=== PATIENT | female | born 1970 | race Caucasian/White ===

== ENCOUNTER 2022-07-24 08:54 | Emergency (ER) | payer BC ==
[~2022-07-24] VITALS: Ht 154.9 cm; Wt 86.2 kg
[2022-07-24 09:00] VITALS: BP_SYST 153
[2022-07-24] MEDS ORDERED: NACL 0.9% 1,000 ML IV ONE (09:45)
[2022-07-24] MEDS ORDERED: DEXAMETHASONE SOD PHOSPHATE 10 MG/ML VIAL IVP ONE (09:45)
[2022-07-24] MEDS ORDERED: DIPHENHYDRAMINE INJ 50 MG/ML VIAL IVP ONE (09:45)
[2022-07-24] MEDS ORDERED: ACETAMINOPHEN 500 MG TABLET PO ONE (09:45)
[2022-07-24] MEDS ORDERED: METOCLOPRAMIDE HCL 10 MG/2 ML VIAL IVP ONE (09:45)
[2022-07-24 10:40] LABS: BASOPHILS # (AUTO) 0.1 K/uL (0.0-0.2); BASOPHILS % (AUTO) 1.3 % (0.0-2.0); EOSINOPHILS # (AUTO) 0.6 K/uL (0.0-0.4); EOSINOPHILS % (AUTO) 6.9 % (0.0-4.0); HEMATOCRIT 38.7 % (36-48); HEMOGLOBIN 12.8 g/dL (12.0-16.0); LYMPHOCYTES # (AUTO) 1.9 K/uL (1.0-5.5); LYMPHOCYTES % (AUTO) 22.2 % (20.5-51.5); MEAN CORPUSCULAR HEMOGLOBIN 30 pg (27-31); MEAN CORPUSCULAR HGB CONC 33 % (32-36); MEAN CORPUSCULAR VOLUME 91 fL (79.0-98.0); MONOCYTES # (AUTO) 0.3 K/uL (0.0-1.0); NEUTROPHILS # (AUTO) 5.5 K/uL (1.8-7.7); NEUTROPHILS % (AUTO) 65.6 % (40.0-70.0); PLATELET COUNT (AUTO) 258 K/uL (130-430); RED BLOOD CELL COUNT(AUTO) 4.26 MIL/uL (4.2-6.2); RED CELL DISTRIBUTION WIDTH 13.4 % (9.0-15.0); WHITE BLOOD COUNT (AUTO) 8.5 K/uL (4.8-10.8)
[2022-07-24 10:58] LABS: CREATININE 0.66 mg/dL (0.55-1.30)
[2022-07-24] MEDS ORDERED: KETOROLAC TROMETHAMINE 30 MG VIAL IVP ONE (11:00)
[2022-07-24 11:03] LABS: ALBUMIN 3.4 g/dL (3.4-4.8); TOTAL BILIRUBIN 0.5 mg/dL (0.0-1.0)
[2022-07-24] MEDS ORDERED: LIDOCAINE 2%, 20 ML MDV INJ ONE (11:45)
[2022-07-24] MEDS ORDERED: FIORICET PO (12:08)
[2022-07-24] MEDS ORDERED: NAPR-1172 PO (12:08)
[2022-07-24] MEDS ORDERED: METH-634 PO (12:11)
[2022-07-24 12:26] VITALS: BP_SYST 129
== END 2022-07-24 12:26 | disposition home or self-care (01) ==
LOC: SED 08:54
DX: M54.81 Occipital neuralgia (principal); R42 Dizziness and giddiness; R11.0 Nausea; I10 Essential (primary) hypertension; Z79.899 Other long term (current) drug therapy
CPT/HCPCS: 99285; 20552; 96374; 96375; 70450; 96361; 80053; 85025; 36415; 76376; J1100; J1200; J1885; J2001; J2765; J7030

== ENCOUNTER 2023-02-06 23:53 | Emergency (ER) | payer BC, OTHER ==
[~2023-02-06] VITALS: Ht 154.9 cm; Wt 88.0 kg
[2023-02-06 23:53] VITALS: BP_SYST 178; PULSE 88; RESP 16; TEMP 97.3; O2SAT 99
[~2023-02-06 23:53] MED LIST: FIORICET PO; METH-634 PO; NAPR-1172 PO
[2023-02-07 00:32] LABS: BASOPHILS # (AUTO) 0.1 K/uL (0.0-0.2); BASOPHILS % (AUTO) 0.7 % (0.0-2.0); EOSINOPHILS # (AUTO) 0.7 K/uL (0.0-0.4); EOSINOPHILS % (AUTO) 5.8 % (0.0-4.0); HEMATOCRIT 36.6 % (36-48); HEMOGLOBIN 12.1 g/dL (12.0-16.0); LYMPHOCYTES # (AUTO) 2.9 K/uL (1.0-5.5); LYMPHOCYTES % (AUTO) 24.3 % (20.5-51.5); MEAN CORPUSCULAR HEMOGLOBIN 30 pg (27-31); MEAN CORPUSCULAR HGB CONC 33 % (32-36); MEAN CORPUSCULAR VOLUME 91 fL (79.0-98.0); MONOCYTES # (AUTO) 0.5 K/uL (0.0-1.0); MONOCYTES % (AUTO) 4.4 % (1.7-9.3); NEUTROPHILS # (AUTO) 7.9 K/uL (1.8-7.7); NEUTROPHILS % (AUTO) 64.8 % (40.0-70.0); PLATELET COUNT (AUTO) 264 K/uL (130-430); RED BLOOD CELL COUNT(AUTO) 4.03 MIL/uL (4.2-6.2); RED CELL DISTRIBUTION WIDTH 13.8 % (9.0-15.0); WHITE BLOOD COUNT (AUTO) 12.1 K/uL (4.8-10.8)
[2023-02-07 00:43] LABS: ANION GAP 8 (5-15); CALCIUM 8.3 mg/dL (8.4-11.0); CARBON DIOXIDE 29 mmol/L (23-29); CHLORIDE 101 mmol/L (98-107); CREATININE 0.86 mg/dL (0.55-1.30); GFR AFRICAN AMERICAN 90 mL/min (>90); GLUCOSE 131 mg/dL (74-106); POTASSIUM 3.5 mmol/L (3.5-5.1); SODIUM SERUM 138 mmol/L (136-145); UREA NITROGEN, BLOOD 22 mg/dL (8-21)
[2023-02-07 00:51] LABS: ALANINE AMINOTRANSFERASE 9 U/L (12-78); ALBUMIN 3.4 g/dL (3.4-4.8); ASPARTATE AMINOTRANSFERASE 11 U/L (10-37); TOTAL BILIRUBIN 0.2 mg/dL (0.0-1.0); TOTAL PROTEIN, SERUM 7.1 g/dL (6.4-8.3)
[2023-02-07 00:53] LABS: GFR NON AFRICAN-AMERICAN 74 mL/min (>90)
[2023-02-07 02:15] VITALS: BP_SYST 147; PULSE 74; RESP 25; TEMP 97.7; O2SAT 96
== END 2023-02-07 02:15 | disposition home or self-care (01) ==
LOC: SED 23:53
DX: J33.8 Other polyp of sinus (principal); R20.2 Paresthesia of skin; F41.9 Anxiety disorder, unspecified; I10 Essential (primary) hypertension; Z79.899 Other long term (current) drug therapy
CPT/HCPCS: 36415; 70450-TC; 76376; 80053; 83880; 84484; 85025; 85379; 99284